=== PATIENT | female | born 1950 | race Caucasian/White ===

== ENCOUNTER 2017-09-16 22:33 | Emergency (ER) | payer OTHER, MEDICAID ==
[~2017-09-16] VITALS: Ht 149.9 cm; Wt 83.9 kg
[2017-09-16 22:35] VITALS: BP_SYST 134
--- NOTE | 2017-09-17 00:04 | NUR ---
Patient to ER bed 5 to gown for evaluation. Side rails up. Report given to GAB STEVENSON.
--- NOTE | 2017-09-17 00:10 | NUR ---
Patient to ER via EMT's with c/o left lower leg pain s/p fall from wheelchair on Saturday09/14/17. Left leg bruised, patient with HX of cerebral palsy and is non-ambulatory. Patient denies LOC, neck or back pain.Patient placed in bed 5, to await MD evaluation. Will continue to observe and assess. Addendum: 09/17/17 at 0223 by HALLIE Correction to above note, pain and bruising is located on right lower leg, not left as previously documented.
--- NOTE | 2017-09-17 01:15 | NUR ---
Patient resting quietly in no acute distress, awaiting evaluation by ER MD-will continue to observe and assess.
--- NOTE | 2017-09-17 01:28 | NUR ---
Dr heller at bedside speaking with patient. Addendum: 09/17/[address] at [address] Heller at bedside to evaluate patient.
--- NOTE | 2017-09-17 02:35 | NUR ---
Patient given written and verbal discharge instructions and verbalizes understanding. ER MD discussed with patient the results and treatment provided. Patient in stable condition. ID arm band removed. No RX given. Patient educated on pain management and to follow up with PMD. Pain Scale 2. Opportunity for questions provided and answered. Patient left ER via ambulance in stable condition. Aftercare paperwork given to staff from facility.
--- NOTE | 2017-09-17 02:35 | NUR ---
[facility] crew from [facility] here to transport patient back to [facility].
[2017-09-17 02:36] VITALS: BP_SYST 146
== END 2017-09-17 02:35 | disposition home or self-care (01) ==
LOC: SED 22:33
DX: S80.11XA Contusion of right lower leg, initial encounter (principal); G80.9 Cerebral palsy, unspecified; Z88.2 Allergy status to sulfonamides; Z88.1 Allergy status to other antibiotic agents; W01.0XXA Fall on same level from slipping, tripping and stumbling without subsequent striking against object, initial encounter; Y93.89 Activity, other specified; Y92.89 Other specified places as the place of occurrence of the external cause; Y99.8 Other external cause status
CPT/HCPCS: 73590-TC; 99284

== ENCOUNTER 2024-03-25 10:08 | Emergency (ER) | payer OTHER, MEDICAID ==
[~2024-03-25] VITALS: Ht 162.6 cm; Wt 78.0 kg
[2024-03-25 10:20] VITALS: BP_SYST 171; PULSE 110; RESP 18; TEMP 98.3; O2SAT 98
[2024-03-25 11:30] VITALS: BP_SYST 160; PULSE 105; RESP 23; TEMP 98.1; O2SAT 97
== END 2024-03-25 11:30 | disposition home or self-care (01) ==
LOC: SED 10:08
DX: S90.02XA Contusion of left ankle, initial encounter (principal); S90.32XA Contusion of left foot, initial encounter; Z88.2 Allergy status to sulfonamides; Z88.8 Allergy status to other drugs, medicaments and biological substances; W51.XXXA Accidental striking against or bumped into by another person, initial encounter; Y93.89 Activity, other specified; Y92.89 Other specified places as the place of occurrence of the external cause; Y99.8 Other external cause status
CPT/HCPCS: 99284